=== PATIENT | male | born 1995 | race Two or more races ===

== ENCOUNTER 2019-07-13 02:39 | Emergency (ER) | payer SELFPAY ==
[~2019-07-13] VITALS: Ht 185.4 cm; Wt 97.5 kg
--- NOTE | 2019-07-13 02:44 | NUR ---
R FLANK PAIN SINCE YESTERDAY. PT ALERT AND ORIENTED. ABULATORY AND COMPLIANT
[2019-07-13] MEDS ORDERED: IV NS 0.9% 1,000 ML BAG IV ONE (03:00)
[2019-07-13] MEDS ORDERED: KETOROLAC TROMETHAMINE INJ 30 MG/ML VIAL IV ONE (03:00)
[2019-07-13 03:17] LABS: BASOPHILS # (AUTO) 0.1 /CMM (0.0-0.2); BASOPHILS % (AUTO) 1.2 % (0.0-2.0); EOSINOPHILS % (AUTO) 5.8 % (0.0-6.0); HEMATOCRIT 46 % (39-51); HEMOGLOBIN 15.7 g/dL (13.5-17.5); LYMPHOCYTES # (AUTO) 2.7 /CMM (0.8-4.8); LYMPHOCYTES % (AUTO) 44.1 % (20.0-44.0); MEAN CORPUSCULAR HGB CONC 34 g/dl (31.0-36.0); MEAN CORPUSCULAR VOLUME 90 fL (80-96); MONOCYTES # (AUTO) 0.8 /CMM (0.1-1.30); MONOCYTES % (AUTO) 13.2 % (2.0-12.0); NEUTROPHILS # (AUTO) 2.2 /CMM (1.8-8.9); NEUTROPHILS % (AUTO) 35.7 % (43.0-81.0); PLATELET COUNT (AUTO) 170 /CMM (150-450); RED BLOOD CELL COUNT(AUTO) 5.07 MIL/uL (4.5-6.0); WHITE BLOOD COUNT (AUTO) 6.2 K/uL (4.3-11.0)
[2019-07-13] MEDS ORDERED: KETOROLAC TROMETHAMINE 15 MG/ML VIAL ONE (03:17)
[2019-07-13 03:33] LABS: ALBUMIN 3.9 g/dL (3.4-5.0); BILIRUBIN,DIRECT 0.1 mg/dL (0.0-0.2); BILIRUBIN,TOTAL 0.5 mg/dL (0.2-1.0); CALCIUM, SERUM 8.8 mg/dL (8.5-10.1); CREATININE 1.1 mg/dL (0.6-1.3); TOTAL PROTEIN, SERUM 7.5 g/dL (6.4-8.2)
[2019-07-13 04:04] LABS: APPEARANCE,URINE CLEAR (CLEAR); BILIRUBIN,URINE NEGATIVE (NEGATIVE); BLOOD, URINE NEGATIVE Ery/uL (NEGATIVE); COLOR,URINE YELLOW (YELLOW); KETONES,URINE NEGATIVE (NEGATIVE); LEUKOCYTE ESTERASE ,URINE NEGATIVE (NEGATIVE); NITRITE, URINE NEGATIVE (NEGATIVE); PROTEIN,URINE NEGATIVE (NEGATIVE); UGLUCOSE NEGATIVE (NEGATIVE); UROBILINOGEN,URINE 0.2 EU/dL (0.2)
--- NOTE | 2019-07-13 04:10 | NUR ---
PT TAKEN TO CT
--- NOTE | 2019-07-13 04:19 | NUR ---
PT BROUGHT BACK FROM CT
[2019-07-13] MEDS ORDERED: IOHEXOL-300 100 ML VIAL IV ONE (04:35)
[2019-07-13] MEDS ORDERED: IV NS 0.9% 250 ML IV ONE (04:35)
[2019-07-13 07:23] VITALS: BP 118/86
== END 2019-07-13 07:24 | disposition home or self-care (01) ==
LOC: ER 02:42
DX: M54.9 Dorsalgia, unspecified (principal); F10.10 Alcohol abuse, uncomplicated; Y90.9 Presence of alcohol in blood, level not specified; Z88.5 Allergy status to narcotic agent
CPT/HCPCS: 36415; 74177; 80076; 80048; 81001; 83690; 85025; 96374; 99284; J1885; J7050; Q9967; 81000-TC

== ENCOUNTER 2022-11-19 18:06 | Emergency (ER) | payer OTHER ==
[~2022-11-19] VITALS: Ht 188 cm; Wt 101.2 kg
--- NOTE | 2022-11-19 19:10 | NUR ---
dr nagel at bedside for eval
--- NOTE | 2022-11-19 19:15 | NUR ---
radio mechanic helper at bedside for xray
--- NOTE | 2022-11-19 19:25 | NUR ---
RAC #20 ESTABLISHED, BLOOD DRAWN AND COLLECTED BY PHLEB AT BEDSIDE
[2022-11-19 19:56] LABS: BASOPHILS # (AUTO) 0.1 K/uL (0.0-0.2); BASOPHILS % (AUTO) 0.8 % (0.0-2.0); EOSINOPHILS % (AUTO) 8.2 % (0.0-6.0); HEMATOCRIT 47 % (39-51); HEMOGLOBIN 16.1 g/dL (13.5-17.5); LYMPHOCYTES # (AUTO) 2.9 K/uL (0.8-4.8); LYMPHOCYTES % (AUTO) 39.6 % (20.0-44.0); MEAN CORPUSCULAR HGB CONC 34 g/dl (31.0-36.0); MEAN CORPUSCULAR VOLUME 88 fL (80-96); MONOCYTES # (AUTO) 0.8 K/uL (0.1-1.30); MONOCYTES % (AUTO) 11.1 % (2.0-12.0); NEUTROPHILS # (AUTO) 2.9 K/uL (1.8-8.9); NEUTROPHILS % (AUTO) 40.3 % (43.0-81.0); PLATELET COUNT (AUTO) 206 K/uL (150-450); RED BLOOD CELL COUNT(AUTO) 5.36 MIL/uL (4.5-6.0); WHITE BLOOD COUNT (AUTO) 7.3 K/uL (4.3-11.0)
[2022-11-19 20:17] LABS: CALCIUM, SERUM 9.3 mg/dL (8.5-10.1); CARBON DIOXIDE 31 mmol/L (21-32); CHLORIDE 101 mmol/L (98-107); CREATININE 1.2 mg/dL (0.6-1.3); GLUCOSE 75 mg/dL (74-106); POTASSIUM 3.6 mmol/L (3.5-5.1); SODIUM SERUM 138 mmol/L (136-145); UREA NITROGEN, BLOOD 12 mg/dL (7-18)
[2022-11-19 20:24] LABS: ALANINE AMINOTRANSFERASE 60 U/L (12-78); ALBUMIN 4.7 g/dL (3.4-5.0); ALKALINE PHOSPHATASE 114 U/L (46-116); ASPARTATE AMINOTRANSFERASE 50 U/L (15-37); BILIRUBIN,DIRECT 0.1 mg/dL (0.0-0.2); BILIRUBIN,TOTAL 0.4 mg/dL (0.2-1.0); TOTAL PROTEIN, SERUM 8.9 g/dL (6.4-8.2)
[2022-11-19] MEDS ORDERED: HYDR12.55 PO (21:53)
[2022-11-19 22:08] VITALS: BP 154/91
--- NOTE | 2022-11-19 22:08 | NUR ---
Patient discharged to home in stable condition. Written and verbal after care instructions given. Patient verbalizes understanding of instruction.IV removed. Catheter intact and site benign. Pressure and 4x4 applied to site. No bleeding noted.
== END 2022-11-19 22:08 | disposition home or self-care (01) ==
LOC: ER 18:12
DX: R07.89 Other chest pain (principal); Z88.8 Allergy status to other drugs, medicaments and biological substances; Z79.899 Other long term (current) drug therapy
CPT/HCPCS: 36415; 71045-TC; 80048-TC; 80076-TC; 84484-TC; 85025-TC

== ENCOUNTER 2022-12-19 17:27 | Inpatient (IN) | payer OTHER ==
[~2022-12-19] VITALS: Ht 188 cm; Wt 104.3 kg
[~2022-12-19 17:27] MED LIST: HYDR12.55 PO
--- NOTE | 2022-12-19 17:30 | NUR ---
BIBS C/O TIGHT CHEST PAIN 03/06 NONRADIATING S/P AFTER HAVING A SYNCOPAL EPISODE. AMBULATORY, PLACED IN BED, BREATHING EVEN AND UNLABORED SATURATING AT 97%, ATTACHED TO MONITOR SHOWS SINUS BRADYCARDIA AR- 55.
--- NOTE | 2022-12-19 18:06 | NUR ---
blood drawn and sent to lab
[2022-12-19] MEDS ORDERED: ATEN25TA PO (18:08)
[2022-12-19 18:20] LABS: BASOPHILS # (AUTO) 0.1 K/uL (0.0-0.2); BASOPHILS % (AUTO) 1.1 % (0.0-2.0); EOSINOPHILS % (AUTO) 6.6 % (0.0-6.0); HEMATOCRIT 44 % (39-51); HEMOGLOBIN 14.3 g/dL (13.5-17.5); LYMPHOCYTES # (AUTO) 2.3 K/uL (0.8-4.8); LYMPHOCYTES % (AUTO) 36.1 % (20.0-44.0); MEAN CORPUSCULAR HGB CONC 33 g/dl (31.0-36.0); MEAN CORPUSCULAR VOLUME 90 fL (80-96); MONOCYTES # (AUTO) 0.6 K/uL (0.1-1.30); MONOCYTES % (AUTO) 9.8 % (2.0-12.0); NEUTROPHILS % (AUTO) 46.4 % (43.0-81.0); PLATELET COUNT (AUTO) 186 K/uL (150-450); RED BLOOD CELL COUNT(AUTO) 4.82 MIL/uL (4.5-6.0); WHITE BLOOD COUNT (AUTO) 6.4 K/uL (4.3-11.0)
--- NOTE | 2022-12-19 18:28 | NUR ---
covid swab taken
[2022-12-19 18:45] LABS: ALANINE AMINOTRANSFERASE 69 U/L (12-78); ALBUMIN 4.1 g/dL (3.4-5.0); ALKALINE PHOSPHATASE 104 U/L (46-116); ASPARTATE AMINOTRANSFERASE 36 U/L (15-37); BILIRUBIN,DIRECT 0.1 mg/dL (0.0-0.2); BILIRUBIN,TOTAL 0.5 mg/dL (0.2-1.0); CALCIUM, SERUM 9.2 mg/dL (8.5-10.1); CARBON DIOXIDE 30 mmol/L (21-32); CHLORIDE 105 mmol/L (98-107); CREATININE 1.1 mg/dL (0.6-1.3); GLUCOSE 80 mg/dL (74-106); POTASSIUM 3.7 mmol/L (3.5-5.1); SODIUM SERUM 142 mmol/L (136-145); TOTAL PROTEIN, SERUM 7.8 g/dL (6.4-8.2); UREA NITROGEN, BLOOD 10 mg/dL (7-18)
[2022-12-19 18:56] LABS: D-DIMER 0.33 mg/L(FEU (0.17-0.50)
[2022-12-19] MEDS ORDERED: ONDANSETRON HCL/PF 4 MG/2 ML VIAL IVP PRN (19:30)
[2022-12-19] MEDS ORDERED: MAG HYDROX/AL HYDROX/SIMETH 30 ML UDC PO PRN (19:30)
[2022-12-19] MEDS ORDERED: ACETAMINOPHEN 325 MG TABLET PO PRN (19:30)
[2022-12-19] MEDS ORDERED: hydrALAZINE HCL IV 20 MG VIAL IV PRN (19:30)
[2022-12-19] MEDS ORDERED: ENOXAPARIN SODIUM 40 MG/0.4 ML DISP.SYRIN SQ ONE (20:46)
--- NOTE | 2022-12-19 20:46 | NUR ---
REPORT GIVEN TO LEIDY Vázquez RN FOR MARK
[2022-12-19] MEDS: ENOXAPARIN SODIUM 40 MG/0.4 ML DISP.SYRIN SQ SCH ×2 (20:50→21:00)
--- NOTE | 2022-12-19 21:00 | NUR ---
PATIENT TRANSFERRED UNDER ACLS
--- NOTE | 2022-12-19 21:09 | NUR ---
RN RECEIVING PATIENT FROM ER NOTE PATIENT ARRIVED TO UNIT FROM ER STABLE. PATIENT WAS ABLE TO AMBULATE TO HIS ASSIGNED BED. PATIENT W/ PARTNER AT BEDSIDE. A/OX4. NO S/S OF DISTRESS BREATHING WITHOUT DIFFICULTY ON ROOM AIR. RFA #20 INTACT AND PATENT. TELE READS SR 71. NO PAIN NOTED AT THIS TIME; HOWEVER, PATIENT STATED DURING THIS RN'S ASSESSMENT THAT HE EXPERIENCES CHEST PAIN UPON EXERTION - PAIN ENDS WHEN EXERTION IS ENDED (POSS STABLE ANGINA). PATIENT WAS ORIENTED TO THE UNIT. PATIENT GIVEN CALL ADAMS AND INSTRUCTED ON ITS USE. TELE BOX SUCCESSFULLY ADMINISTERED TO PATIENT; PATIENT EDUCATION GIVEN TO PATIENT RE: TELE BOX IMPORTANCE. BELONGINGS ACCOUNTED FOR, LOGGED INTO SHEET, AND PLACED IN CHART. SAFETY MEASURES IN PLACE: BED LOCKED AND AT LOWEST POSITION, RAILS UP X2, CALL ADAMS WITHIN REACH. WILL CONTINUE TO MONITOR PATIENT.
--- NOTE | 2022-12-19 21:48 | NUR ---
RN NOTE PATIENT HAD ALREADY RECEIVED LOVENOX DOWN IN ER @2049. SAME DOSE WAS ORDERED FOR 2099. NOT ADMINISTERED SINCE ALREADY ADMINISTERED. PATIENT STABLE; WILL CONTINUE TO MONITOR PATIENT.
[2022-12-19 23:06] VITALS: BP 125/70
--- NOTE | 2022-12-20 06:23 | NUR ---
RN CLOSING NOTE PATIENT AWAKE IN BED. A/OX4. NO S/S OF DISTRESS, BREATHING WITHOUT DIFFICULTY ON ROOM AIR. RFA #20 SL INTACT AND PATENT. TELE READS SR 62. SAFETY MEASURES IN PLACE: BED LOCKED AND AT LOWEST POSITION, RAILS UP X2, CALL ADAMS WITHIN REACH. WILL ENDORSE TO NEXT SHIFT FOR MARK.
[2022-12-20 06:24] LABS: BASOPHILS % (AUTO) 0.7 % (0.0-2.0); EOSINOPHILS % (AUTO) 8.8 % (0.0-6.0); HEMATOCRIT 42 % (39-51); LYMPHOCYTES # (AUTO) 2.1 K/uL (0.8-4.8); LYMPHOCYTES % (AUTO) 40.1 % (20.0-44.0); MEAN CORPUSCULAR HGB CONC 34 g/dl (31.0-36.0); MEAN CORPUSCULAR VOLUME 89 fL (80-96); MONOCYTES # (AUTO) 0.6 K/uL (0.1-1.30); MONOCYTES % (AUTO) 12.2 % (2.0-12.0); NEUTROPHILS % (AUTO) 38.2 % (43.0-81.0); PLATELET COUNT (AUTO) 179 K/uL (150-450); WHITE BLOOD COUNT (AUTO) 5.2 K/uL (4.3-11.0)
[2022-12-20 06:47] LABS: ALBUMIN 3.6 g/dL (3.4-5.0); BILIRUBIN,TOTAL 0.6 mg/dL (0.2-1.0); CALCIUM, SERUM 8.8 mg/dL (8.5-10.1); CREATININE 1.1 mg/dL (0.6-1.3); MAGNESIUM 1.7 mg/dL (1.8-2.4); PHOSPHORUS 4.1 mg/dL (2.5-4.9); POTASSIUM 3.9 mmol/L (3.5-5.1); TOTAL PROTEIN, SERUM 7.2 g/dL (6.4-8.2)
--- NOTE | 2022-12-20 07:00 | NUR ---
DOOR TO DOOR SALESPERSON OPENING NOTES RECEIVED PATIENT AWAKE AND IN BED, A/Ox4 ABLE TO MAKE NEEDS KNOWN. ON ROOM AIR, NO S/S OF RESPIRATORY DISTRESS. IV ACCESS RFA #20G S/L. INTACT AND PATENT. NO S/S OF INFILTRATION. ON TELE MONITORING SHOWING SINUS RHYTHM HR 64. NO C/O OF CHEST PAIN OR DISCOMFORT. PATIENT AMBULATORY, HAS BATHROOM PRIVILEGE. SKIN INTACT. SAFETY MEASURES IN PLACE: BED LOCKED AND IN LOWEST POSITION, SIDE RAILS UPx2, CALL LIGHT WITHIN REACH, HOB ELEVATED. WILL CONTINUE TO MONITOR.
[2022-12-20 08:00] VITALS: BP 138/79
[2022-12-20 08:49] VITALS: BP 138/82
[2022-12-20] MEDS ORDERED: AMLODIPINE BESYLATE 5 MG TABLET PO SCH (09:00)
[2022-12-20] MEDS ORDERED: MAGNESIUM OXIDE 400 MG TABLET PO ONE (09:30)
[2022-12-20] MEDS ORDERED: AMLO10TA4 PO (11:43)
--- NOTE | 2022-12-20 13:29 | NUR ---
CLERK CARRIER NOTES PATIENT D/C HOME. STABLE, A/Ox4, NO S/S OF RESPIRATORY DISTRESS, NO C/O OF CHEST PAIN OR DISCOMFORT. STABLE ON ROOM AIR. PATIENT GIVEN DISCHARGE INSTRUCTIONS AND HEALTH TEACHINGS. VERBALIZED UNDERSTANDING. TEACHINGS ON MEDICATION AND DR. SILVA'S INFORMATION GIVEN TO PATIENT. PATIENT SIGNED ALL FORMS AND COPIES MADE, FILED INTO CHART. PATIENT GATHERED ALL BELONGINGS TOGETHER AND CHANGED INTO PERSONAL CLOTHING. IV ACCESS REMOVED, PRESSURE DRESSING APPLIED. ID BAND REMOVED. PATIENT SKIN INTACT. PATIENT LEFT UNIT AMBULATING ACCOMPANIED BY RN, DEAN @1210. PATIENT LEAVING VIA PERSONAL VEHICLE. CHARGE NURSE AND MD AWARE OF DISCHARGE.
== END 2022-12-20 12:20 | disposition home or self-care (01) | DRG 310 ==
LOC: ER 17:30 → TELE 20:01
PROVIDERS: ADMIT Internal Medicine; ATTEND Nurse Practitioner Acute Care
DX: R00.1 Bradycardia, unspecified (principal); I11.9 Hypertensive heart disease without heart failure; Z79.899 Other long term (current) drug therapy; Z88.5 Allergy status to narcotic agent; Z87.820 Personal history of traumatic brain injury; Z82.49 Family history of ischemic heart disease and other diseases of the circulatory system; E83.42 Hypomagnesemia; F41.9 Anxiety disorder, unspecified; E66.9 Obesity, unspecified; Z68.29 Body mass index [BMI] 29.0-29.9, adult; T44.7X5A Adverse effect of beta-adrenoreceptor antagonists, initial encounter; Y92.009 Unspecified place in unspecified non-institutional (private) residence as the place of occurrence of the external cause
CPT/HCPCS: 36415; 71045-TC; 80048-TC; 80053-TC; 80076-TC; 83735-TC; 83880; 84100-TC; 84484-TC; 85025-TC; 85378-TC; 85730-TC; 87081-TC; 93307-TC; C9803; G0378; J1650

== ENCOUNTER 2023-10-15 20:09 | Emergency (ER) | payer OTHER ==
[~2023-10-15] VITALS: Ht 188 cm; Wt 93.0 kg
[~2023-10-15 20:09] MED LIST changes: +AMLO10TA4 PO; -HYDR12.55 PO
[2023-10-15] MEDS ORDERED: ACETAMINOPHEN ES 500 MG TABLET ONE (22:37)
[2023-10-15] MEDS: ACETAMINOPHEN ES 500 MG TABLET PO ONE (22:37)
[2023-10-16 00:37] VITALS: BP 162/107; TEMP 98; O2SAT 98
== END 2023-10-16 00:37 | disposition home or self-care (01) ==
LOC: ER 20:11
DX: R51.9 Headache, unspecified (principal); I10 Essential (primary) hypertension; Z79.899 Other long term (current) drug therapy; Z88.5 Allergy status to narcotic agent
CPT/HCPCS: 70450-TC